=== PATIENT | female | born 1965 | race Asian ===

== ENCOUNTER 2018-10-12 08:24 | Outpatient (CLI) | payer BC ==
--- NOTE | 2018-10-12 11:06 | MMO ---
BILATERAL DIGITAL SCREENING MAMMOGRAMS: Date: 10/12/18 HISTORY: 53-year-old female presents for digital screening mammogram. COMPARISON: 02/05/15, 12/20/10. FINDINGS: This patient's mammogram was interpreted with the assistance of computer-aided detection. Scattered fibroglandular changes are noted. There are stable typically benign calcifications. Small, stable, circumscribed mass in the outer aspect of the right breast, possibly a small lymph node. IMPRESSION: BIRADS 2: Benign Finding(s) Continue routine screening. POS: [facility]
== END 2018-10-12 08:25 | disposition home or self-care (01) ==
LOC: SCSMAMMO 08:24
PROVIDERS: ATTEND Internal Medicine
DX: Z12.31 Encounter for screening mammogram for malignant neoplasm of breast (principal)
CPT/HCPCS: 77067

== ENCOUNTER 2019-09-06 08:21 | Outpatient (CLI) | payer BC ==
--- NOTE | 2019-09-06 10:20 | RAD ---
RIGHT FOOT 3 VIEWS: HISTORY: Fracture of the 5th toe in April 2019. FINDINGS/IMPRESSION: There are no previous exams for comparison. There is nonunion of the fracture fragment of the medial aspect of the head of the proximal phalanx of the little toe/5th digit. The fracture line involves the articular surface. The fracture fragment is well corticated. POS: OFF
== END 2019-09-06 08:22 | disposition home or self-care (01) ==
LOC: SCSRAD 08:21
PROVIDERS: ATTEND Internal Medicine
DX: S92.354K Nondisplaced fracture of fifth metatarsal bone, right foot, subsequent encounter for fracture with nonunion (principal); M25.571 Pain in right ankle and joints of right foot

== ENCOUNTER 2020-01-16 08:04 | Outpatient (CLI) | payer BC ==
--- NOTE | 2020-01-16 08:23 | RAD ---
XR Chest Pa Lat STANDARD HISTORY: Cough COMPARISON: 03/18/2013 FINDINGS: The heart size is normal. The lungs are well expanded without focal areas of consolidation, pneumothorax or pleural effusions. IMPRESSION: No radiographic evidence of acute cardiopulmonary process.
--- NOTE | 2020-01-16 10:30 | ULT ---
ABDOMINAL ULTRASOUND COMPLETE: Date: 01/16/2020 HISTORY: Elevated LFTs. FINDINGS: Very coarse heterogeneous liver echogenicity, evidence for fatty change with fatty sparing adjacent t o the gallbladder. No evidence for gallstones, wall thickening, edema, or pericholecystic fluid. Comm on bile duct 0.5 cm. No focal liver masses. Visualized pancreas, IVC, aorta, and spleen are unremarka ble. Kidneys appear unremarkable. No renal hydronephrosis. No abscess or abnormal fluid collection. IMPRESSION: Evidence for fatty changes in the liver with some fatty sparing adjacent to the gallbladder. No evide nce for other significant acute process. POS: [facility]
== END 2020-01-16 08:05 | disposition home or self-care (01) ==
LOC: SCSULT 08:04
PROVIDERS: ATTEND Internal Medicine
DX: R05 Cough (principal); R74.8 Abnormal levels of other serum enzymes; K76.0 Fatty (change of) liver, not elsewhere classified
CPT/HCPCS: 71046; 93975